=== PATIENT | male | born 1965 ===

== ENCOUNTER 2017-03-12 08:43 | Outpatient (CLI) | payer OTHER ==
--- NOTE | 2017-03-12 12:41 | XRay Report ---
XRAY LEFT SHOULDER THREE VIEWS: 03/12/17 08:43:00 CLINICAL: Left shoulder pain. FINDINGS: No fracture or dislocation. The bones are slightly increased in density and increased density of the humeral head suggests possible avascular necrosis. However, no subchondral fracture is identified. Mild narrowing of the inferior glenohumeral joint. Normal acromioclavicular joint. Normal soft tissues. IMPRESSION: Changes in the humeral head suggests avascular necrosis. Increased density of the bones with myriad possibilities. However, renal osteodystrophy would be a more common etiology for such changes. Mild glenohumeral joint arthritis.
--- NOTE | 2017-03-12 12:43 | XRay Report ---
XRAY BILATERAL KNEE THREE VIEWS EACH: 03/12/17 08:43:00 CLINICAL: Bilateral knee pain. FINDINGS: Right: Mild medial joint space narrowing. Tiny patellofemoral osteophytes. No fracture or dislocation. No joint effusion. Normal soft tissues. Left: Mild medial joint space narrowing. Tiny patellofemoral osteophytes. No fracture or dislocation. Normal soft tissues. IMPRESSION: Minimal arthritis.
== END 2017-03-12 08:44 | disposition home or self-care (01) ==
LOC: SPVIMAG 08:43
PROVIDERS: ATTEND Orthopaedic Surgery
DX: M17.0 Bilateral primary osteoarthritis of knee (principal); M19.012 Primary osteoarthritis, left shoulder